=== PATIENT | male | born 1955 | race Caucasian/White ===

== ENCOUNTER → 2021-12-19 | Outpatient (CLI) | payer MEDICARE ==
[~2021-12-19] MED LIST: ANTIVERT25 MG PO; BACTRIM DS 8001 TA1 PO; CLARITIN-D 10 M1 T21 PO; KEFLEX500 MG PO; MOTRIN800 MG PO
[2021-12-19 08:17] LABS: HEMATOCRIT 42.4 % (42.0-52.0); MEAN CELL VOLUME 93.2 fl (80.0-94.0); MEAN CORPUSCULAR HGB 31.6 pg (27.0-31.0); MEAN PLATELET VOLUME 10.5 fl (9.6-12.3); RED BLOOD COUNT 4.55 10*6/uL (4.50-5.90); WHITE BLOOD COUNT 6.7 10*3/uL (4.8-10.8)
[2021-12-19 08:34] LABS: BUN 24 mg/dl (7-24); CHLORIDE 106 mmol/L (98-107); CHOLESTEROL 170 mg/dL (<200); CREATININE 0.95 mg/dL (0.70-1.30); POTASSIUM 4.4 mmol/L (3.5-5.1); SGOT/AST 22 IU/L (3-35); SGPT/ALT 24 U/L (12-78); SODIUM 138 mmol/L (136-145); TRIGLYCERIDES 105 mg/dl (<150)
[2021-12-19 08:39] LABS: ALKALINE PHOSPHATASE 65 U/L (45-117); LDL CHOLESTEROL 92 mg/dL (9-159); TOTAL PROTEIN 7.7 gm/dL (6.4-8.2)
[2021-12-19 08:55] LABS: VITAMIN D, 25-HYDROXY 37.8 ng/mL (30-100)
== END | disposition home or self-care (01) ==
LOC: LAB 07:53
PROVIDERS: ATTEND Family Medicine
DX: E78.00 Pure hypercholesterolemia, unspecified (principal); E55.9 Vitamin D deficiency, unspecified; Z79.899 Other long term (current) drug therapy; Z12.5 Encounter for screening for malignant neoplasm of prostate; I70.0 Atherosclerosis of aorta

== ENCOUNTER 2023-07-24 13:45 | Emergency (ER) | payer MEDICARE, MEDICAID ==
[~2023-07-24] VITALS: Ht 162.5 cm; Wt 51.3 kg
[2023-07-24 14:37] LABS: BASO % 0.9 % (0.0-1.0); EOS # 0.1 10*3/uL (0.0-0.4); EOS % 2.5 % (1.0-4.0); HEMATOCRIT 45.1 % (42.0-52.0); LYMPH # 1.6 10*3/uL (1.3-4.4); LYMPH % 37.8 % (27.0-41.0); MEAN CELL VOLUME 93.6 fl (80.0-94.0); MEAN CORPUSCULAR HGB 30.7 pg (27.0-31.0); MEAN CORPUSCULAR HGB CONC 32.8 g/dl (33.0-37.0); MEAN PLATELET VOLUME 10.8 fl (9.6-12.3); MONO # 0.6 10*3/uL (0.1-1.0); MONO % 13.6 % (3.0-9.0); PLATELET COUNT AUTOMATED 160 10*3/uL (130-400); RED BLOOD COUNT 4.82 10*6/uL (4.50-5.90); RED CELL DISTRI WIDTH 12.9 % (0-14.5); WHITE BLOOD COUNT 4.3 10*3/uL (4.8-10.8)
[2023-07-24 14:37] LABS: BILIRUBIN Negative (Negative); BLOOD Negative (Negative); CLARITY Clear (Clear); COLOR Yellow (Yellow); GLUCOSE Negative (Negative); KETONE Trace (Negative); LEUKO ESTERASE Negative (Negative); NITRITE Negative (Negative)
[2023-07-24 14:50] LABS: ACT PARTIAL THROMBO TIME 30.3 SECONDS (20.0-32.1)
[2023-07-24 14:56] LABS: BACTERIA TRACE; WBC 0-2 wbc/hpf (0-5)
[2023-07-24 15:07] LABS: ALKALINE PHOSPHATASE 68 U/L (46-116); BUN 13 mg/dl (9-23); CHLORIDE 105 mmol/L (98-107); LIPASE 61 U/L (12-53); POTASSIUM 4.3 mmol/L (3.4-5.1); SGPT/ALT 19 U/L (5-49); TOTAL PROTEIN 7.6 gm/dL (6.0-8.0)
[2023-07-24] MEDS ORDERED: MECLIZINE HCL25 M2 PO (16:49)
== END 2023-07-24 16:49 | disposition home or self-care (01) ==
LOC: ED 13:45
PROVIDERS: Emergency Medicine
DX: R42 Dizziness and giddiness (principal); R50.9 Fever, unspecified; R10.2 Pelvic and perineal pain

== ENCOUNTER 2025-03-22 09:22 | Emergency (ER) | payer MEDICARE, MEDICAID ==
[~2025-03-22] VITALS: Ht 162.5 cm; Wt 52.2 kg
[~2025-03-22 09:22] MED LIST changes: +MECLIZINE HCL25 M2 PO
== END 2025-03-22 10:38 | disposition home or self-care (01) ==
LOC: ED 09:22
DX: B07.9 Viral wart, unspecified (principal)